=== PATIENT | male | born 1945 | race Caucasian/White ===

== ENCOUNTER → 2019-10-27 | Outpatient (CLI) | payer MEDICARE ==
[~2019-10-27] MED LIST: ASPI325T8 PO; GABA-585 PO; HYDR-2761 PO; MECL-75 PO; METO50TA4 PO; PRED-220 PO; PSYL0.4C2 PO
--- NOTE | 2019-10-27 14:32 | KCIC ---
MRI Lumbar Spine without contrast History: Lumbar radiculopathy, acute right leg pain, numbness, weakness Technique: Multiplanar, multi sequential noncontrast MR imaging was performed of the lumbar spine. Comparison: None Findings: Lumbar vertebral body stature is maintained. There is negligible anterior spondylolisthesis at L5-S1. There is [id number] degenerative disc disease at L4-5, minimally at L3-4, mild disc desiccation at L2-3. There are posterior annular tears L2-3 through L4-5, also anteriorly L2-3. Conus terminates at the mid aspect of L1. There is somewhat diffuse narrowing of the lumbar neural foramina on a developmental basis. There are hemangiomas greatest at T12 and L4, smaller foci of L1, L3, and S1. L1-L2: Spinal canal and neural foramina are adequate. L2-L3: There is minimal disc osteophyte complex and bulge, mild indentation upon the ventral thecal sac greater left lateral recess. There is minimal facet degenerative change. There is mild narrowing of the far lateral recesses greater on the left. There is mild neural foramina compromise bilaterally. L3-L4: There is negligible disc osteophyte complex and bulge. There is minimal facet degenerative change. Spinal canal is overall adequate. There is mild left greater than right neural foramina compromise in part by disc osteophyte complex. L4-L5: There is a large extrusion extending slightly above and to a greater degree below the intervertebral disc space greatest centrally and in the right lateral recess, on the order of about 24 mm CC by about 9 to 10 mm AP by up to 14 mm transverse. There is inferior extent to the approximate mid one half of the L5 vertebral body. There is severe right lateral recess stenosis with impingement of the descending right L5 nerve root, also contact of the descending right S1 nerve root. There is mild narrowing of the central canal and far left lateral recess. There is [id number] left and mild right neural foramina compromise by facets and disc osteophyte complex. L5-S1: Spinal canal is adequate. There is [id number] right facet degenerative change, minimally on the left. There is mild narrowing of the right neural foramen primarily from posteriorly by facet, left neural foramen overall adequate. Impression: 1. There is large extrusion extending very slightly above and to a greater degree below the L4-5 intervertebral disc space eccentric to the right lateral recess with severe right lateral recess stenosis and impingement of the descending right L5 nerve root, also contact of the descending right S1 nerve root. 2. There is mild to moderate L4-5 degenerative disc disease, minimally at L3-4. 3. There is somewhat diffuse narrowing of the lumbar neural foramina on developmental basis, mild to moderate narrowing on the left at L4-5 and other mild narrowing as stated. 4. There are multilevel hemangiomas, largest posteriorly on the left at L4. Electronically signed by: Lance Salmeron MD (10/27/2019 2:29 PM) [id number]
== END | disposition home or self-care (01) ==
LOC: KCIC MRI 12:23
PROVIDERS: ATTEND Neurological Surgery
DX: M51.16 Intervertebral disc disorders with radiculopathy, lumbar region (principal); M43.17 Spondylolisthesis, lumbosacral region; M48.061 Spinal stenosis, lumbar region without neurogenic claudication; D18.09 Hemangioma of other sites; M25.78 Osteophyte, vertebrae
CPT/HCPCS: 72148

== ENCOUNTER → 2019-10-30 | Outpatient (CLI) | payer MEDICARE ==
[~2019-10-30] MED LIST changes: +DOCU-109 PO
[2019-10-30 13:42] LABS: BASO % 0 % (0-3); EOS % 0 % (0-3); HEMATOCRIT 41.9 % (39.0-53.0); HEMOGLOBIN 14.2 g/dL (13.0-17.5); LYMPH # 1.4 x10^3/uL (1.0-4.8); LYMPH % 11 % (24-48); MEAN CORPUSCULAR HEMOGLOBIN 30 pg (25-35); MEAN CORPUSCULAR HGB CONC 34 g/dL (31-37); MEAN CORPUSCULAR VOLUME 89 fL (79-100); MONO # 0.7 x10^3/uL (0.0-1.1); MONO % 6 % (0-9); NEUT # 11.1 x10^3/uL (1.8-7.7); NEUT % 83 % (31-73); PLATELET COUNT 241 x10^3/uL (140-400); RED BLOOD COUNT 4.73 x10^6/uL (4.30-5.70); RED CELL DISTRIBUTION WIDTH 13.5 % (11.5-14.5); WHITE BLOOD COUNT 13.3 x10^3/uL (4.0-11.0)
--- NOTE | 2019-10-30 14:25 | EKG ---
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 Electronically Signed On 11-02-2019 11:18:41 CDT by Julito Hurt
[2019-10-30 14:29] LABS: ALBUMIN 3.6 g/dL (3.4-5.0); ALBUMIN/GLOBULIN RATIO 0.9 (1.0-1.7); CALCIUM 9.7 mg/dL (8.5-10.1); CREATININE 1.4 mg/dL (0.7-1.3); GFR 49.3; POTASSIUM 4.5 mmol/L (3.5-5.1); TOTAL BILIRUBIN 0.6 mg/dL (0.2-1.0); TOTAL PROTEIN 7.7 g/dL (6.4-8.2)
== END | disposition home or self-care (01) ==
LOC: SURGPAT 12:14
PROVIDERS: ATTEND Neurological Surgery
DX: Z01.818 Encounter for other preprocedural examination (principal); M51.16 Intervertebral disc disorders with radiculopathy, lumbar region; Z88.8 Allergy status to other drugs, medicaments and biological substances
CPT/HCPCS: 36415; 80053; 85025; 87641; 93005